=== PATIENT | male | born 1980 | race Asian ===

== ENCOUNTER 2025-02-22 20:04 | Emergency (ER) | payer SELFPAY ==
[2025-02-22 20:16] VITALS: BP 135/89
[2025-02-22 20:26] VITALS: BP 101/70
[2025-02-22 20:35] VITALS: BMI 22.5
--- NOTE | 2025-02-22 20:56 | ED.SKININJ ---
HPI-Injury
General
Chief Complaint: Bite
Source: patient and other (Friend)
Time Seen by Provider: 02/22/25 20:28
History of Present Illness-Injury
Is this injury a work related problem?: No
Is pt an associate of [facility]?: No
Initial Injury comments:
Patient bitten by a friend's dog. Dog is domestic. Dog up-to-date on rabies shots. Patient is currently on a green card and had [place] about 2 [place] No other injury except for the lip. Very superficial bite to
the right arm.
Past History
Past History
ED Past Medical History: None
Review of Systems
Review of Systems
All Other Systems: Not applicable
Phy Exam
Physical Exam
Physical Exam:
GENERAL: Alert and oriented in no apparent distress
EYE: Orbits normal.
NECK: Supple, no trauma
ENT: Pharynx without erythema. Defect to the lower lip midline approximately 3 cm x 1 cm. 2 cm intraoral laceration in the same location. Teeth are stable.
CARDIAC: Regular rate and rhythm
LUNGS: No respiratory distress
NEUROLOGICAL: Alert and oriented , grossly non-focal
SKIN: Warm and dry. Very superficial bite to the right arm
MUSCULOSKELETAL: No edema,no deformity.Good color
PSYCH: Normal and appropriate interaction.
Course
Orders/Labs/Results
Orders:
Orders
02/22/25 21:40
Amoxicillin 875 mg/Clav 125 mg [Augmentin 875 mg/125 mg] 1 tablet PO NOW STA
Ibuprofen [Motrin] 600 mg PO NOW STA
Vital Signs
Initial and Last Documented VS:
Initial Vital Signs
Pulse Resp BP Pulse Ox
83 18 135/89 100
02/22/25 20:16 02/22/25 20:16 02/22/25 20:16 02/22/25 20:16
Last Documented Vital Signs
Pulse Resp BP Pulse Ox
77 16 101/70 95
02/22/25 20:30 02/22/25 20:30 02/22/25 20:26 02/22/25 20:58
Procedures
Laceration Closure
Buccal mucosa lower inside lip:
Status of Wound: clean
Size of Wound in cm: 2
Description of Wound Edges: ragged
Preparation: cleaned with saline
Anesthesia: 1% Lidocaine with epi
Revision/Debridement: minor revision
Wound exploration: explored to base- no FB
Type of Closure: single layer closure
Skin Closure Material: 5-0 vicryl
Number of sutures: 4
MDM/Problems Addressed
Differential Diagnosis Includes:
Defect of the lower lip. Vasovagal syncope at triage. This was all stable. Picture sent to plastic surgery. Leave wound open. I will close the intraoral laceration. Antibiotics Aquaphor and follow-up with plastic surgery
*Pulse Oximetry
SaO2: 95
Oxygen Mode of Delivery: Room air
Patient hypoxic: no
*Critical Care Note
Total Time (30-74mins, 75-104mins- exclusive of procedures): Not Applicable
ED Attending Note
-
Portions of this chart may have been created with voice recognition software.� Occasional wrong word or��sound alike� substitutions may have occurred due to the inherent limitations of voice recognition software.
Discharge Plan
Departure
Patient Disposition: Home (Routine Discharge)
Date of Disposition: 02/22/25
Time of Disposition: 21:42
Patient with high blood pressure during this ER visit?: No
Discharge Problem:
Lip avulsion, Intraoral laceration, Secondary to dog bite, Vasovagal near syncope
Instructions: Animal Bites (DC), Laceration Repair With Stitches (DC), Near Fainting (DC)
Prescriptions:
New
amoxicillin-pot clavulanate 875-125 mg tablet
1 tab PO BID Qty: 14 0RF
Referrals:
NONE,* [Family Provider, Internal Medicine]
Anthony Abernathy MD [Active, Plastic Surgery] - Follow up in 2-3 days
Activity Restrictions/Additional Instructions:
Swish and spit with chlorhexidine oral rinses
Aquaphor to the lip
The plastic surgery office should call you tomorrow for recheck on
For completeness have the dog checked by the vet
Interventions
Interventions:
*Risk Screen - Suicide Last Done: 02/22/25 20:39
*General Assessment Last Done: 02/22/25 20:16
*Neglect/Abuse Screening Last Done: 02/22/25 20:39
*ED- Fall Risk Assessment Last Done: 02/22/25 20:16
*ED COVID-19 Vaccine History Last Done: 02/22/25 20:16
*Nursing Disposition Last Done: 02/22/25 21:54
ED-Skin Assessment Last Done: 02/22/25 20:36
Discharge Date and Time
Discharge Date/Time: 02/22/25 21:55
Print Language: MACANESE
[2025-02-22] MEDS: AUGMENTIN 875 MG/125 MG 1 TABLET PO (21:45)
[2025-02-22] MEDS: MOTRIN 600 MG PO (21:45)
== END 2025-02-22 21:55 | disposition home or self-care (01) ==
LOC: EMR 20:04
PROVIDERS: EMERGENCY PHYSICIAN Emergency Medicine
DX: S01.512A Laceration without foreign body of oral cavity, initial encounter (principal); S40.871A Other superficial bite of right upper arm, initial encounter; W54.0XXA Bitten by dog, initial encounter; R55 Syncope and collapse
CPT/HCPCS: 99283; 12011

== ENCOUNTER 2025-02-23 20:22 | Emergency (ER) | payer OTHER, SELFPAY ==
[2025-02-23 20:25] VITALS: BP 97/82
--- NOTE | 2025-02-23 23:38 | ED.GENMED ---
History of Present Illness
<Luis Muniz Jr., PA-C - Last Filed: 02/24/25 03:04>
General
Chief Complaint: Skin Problem
Source: patient
Exam Limitations: none
Time Seen by Provider: 02/23/25 23:05
Nursing documentation reviewed up to this point in time: agreed with
History of Present Illness
History of Present Illness:
44-year-old male presenting to the emergency department today for concerns of ongoing swelling to the lower lip. Was bit by dog yesterday treated with antibiotics also had partial repair laceration thinks it could be looking worse and has had some
drainage. Denies any systemic symptoms or fevers.
Past History
<Luis Muniz Jr., PA-C - Last Filed: 02/24/25 03:04>
Past History
ED Past Medical History: None
Review of Systems
<Luis Muniz Jr., PA-C - Last Filed: 02/24/25 03:04>
Review of Systems
Allergies reviewed?: Yes
All Other Systems: ROS reviewed and negative except as documented in HPI and ROS
Phy Exam
<GUNNAR Goyal Jr. Last Filed: 02/24/25 03:04>
Physical Exam
Physical Exam:
GENERAL: Alert , in no apparent distress
EYE: pupils equal and reactive
NECK: Supple, no significant adenopathy.
ENT: Lower lip with laceration no ongoing drainage some tenderness and swelling. No redness or warmth normal oromucosa no fluctuance or induration o/p clr, mmm.
CARDIAC: Regular rate and rhythm .
LUNGS: Clear breath sounds bilaterally, no acute respiratory distress, no wheezes/rales/rhonchi
ABDOMEN: Soft, without focal tenderness, no r/g, no cvat
NEUROLOGICAL: Alert and oriented, no focal neuro deficits
SKIN: Warm and dry, skin intact.
MUSCULOSKELETAL: No edema, well perfused.
PSYCH: Normal and appropriate interaction.
Sepsis
<Luis Muniz Jr., PA-C - Last Filed: 02/24/25 03:04>
Sepsis Screening
Sepsis Assessment: Sepsis Ruled Out
Sepsis Screen
Sepsis Screen: Sepsis Ruled Out
Date: 02/24/25
Time: 03:04
<Darling Hampton DO - Last Filed: 02/24/25 04:50>
Sepsis Screen
Sepsis Screen: Sepsis Ruled Out
Date: 02/24/25
Time: 04:45
Course
<Luis Muniz Jr., PA-C - Last Filed: 02/24/25 03:04>
Vital Signs
Initial and Last Documented VS:
Initial Vital Signs
Temp Pulse Resp BP Pulse Ox
98.5 F 76 16 97/82 99
02/23/25 20:25 02/23/25 20:25 02/23/25 20:25 02/23/25 20:25 02/23/25 20:25
Last Documented Vital Signs
Temp Pulse Resp BP Pulse Ox
98.5 F 76 16 97/82 99
02/23/25 20:25 02/23/25 20:25 02/23/25 20:25 02/23/25 20:25 02/23/25 23:38
<Darling Hampton DO - Last Filed: 02/24/25 04:50>
Vital Signs
Initial and Last Documented VS:
Initial Vital Signs
Temp Pulse Resp BP Pulse Ox
98.5 F 76 16 97/82 99
02/23/25 20:25 02/23/25 20:25 02/23/25 20:25 02/23/25 20:25 02/23/25 20:25
Last Documented Vital Signs
Temp Pulse Resp BP Pulse Ox
98.5 F 76 16 97/82 99
02/23/25 20:25 02/23/25 20:25 02/23/25 20:25 02/23/25 20:25 02/23/25 23:38
<Luis Muniz Jr., PA-C - Last Filed: 02/24/25 03:04>
MDM/Problems Addressed
MDM/Problems Addressed:
44-year-old male presenting with concerns of ongoing discomfort and increasing swelling to the lower lip after being bit by dog yesterday. Here there is no redness or warmth no evidence of obvious infection at this point. Advised for ongoing
antibiotic use and return precautions given for any signs of infection.
<Luis Muniz Jr., PA-C - Last Filed: 02/24/25 03:04>
*Pulse Oximetry
SaO2: 99
Oxygen Mode of Delivery: Room air
Patient hypoxic: no (99)
*Critical Care Note
Total Time (30-74mins, 75-104mins- exclusive of procedures): Not Applicable
ED Attending Note
<Luis Muniz Jr., PA-C - Last Filed: 02/24/25 03:04>
-
Portions of this chart may have been created with voice recognition software.� Occasional wrong word or��sound alike� substitutions may have occurred due to the inherent limitations of voice recognition software.
<Darling Hampton DO - Last Filed: 02/24/25 04:50>
ED Attending Note
Patient seen and examined by attending physician: Yes
I performed a history and physical exam of patient and discussed management with resident, I reviewed resident's note and agree with documented findings and plan of care.: Yes
ED Attending Note:
This is a 44-year-old gentleman who suffered a dog bite wound to his lower lip yesterday.
Full-thickness tissue loss mid aspect of his lower lip. Suture repaired.
He has follow-up planned with plastic surgery next week.
He presents with concern for some exudate developing. He denies significant pain. He has not had a fever.
He believes he is up-to-date with Tdap. Recently obtained his green card and had multiple immunizations during process of obtaining his green card.
He has been compliant with Augmentin.
Exam notable for an element of full-thickness tissue loss to mid aspect of the lower lip with local crusting/early eschar. There is no erythema, no exudate, no significant soft tissue swelling.
Overall the wound appears to be healing well. No evidence of infection.
Recommend continuing with local wound care. Continue Augmentin. Soft bland diet.
Follow-up with plastics as already planned.
Discharge Plan
Departure
Patient Disposition: Home (Routine Discharge)
Date of Disposition: 02/23/25
Time of Disposition: 23:36
Patient with high blood pressure during this ER visit?: No
Condition: Good
Discharge Problem:
Encounter for wound re-check, healing dog bite wound lower lip
Prescriptions:
No Action
amoxicillin-pot clavulanate 875-125 mg tablet
1 tab PO BID Qty: 14 0RF
omeprazole
PO DAILY
Referrals:
NONE,* [Family Provider, Internal Medicine]
Anthony Abernathy MD [Active, Plastic Surgery] - Follow up in 2-3 days
Activity Restrictions/Additional Instructions:
Continue Augmentin.
Check on tetanus immunization status.
You may take Tylenol versus ibuprofen as needed for discomfort.
Follow-up with plastic surgeon.
Interventions
Interventions:
*Risk Screen - Suicide Last Done: 02/23/25 20:25
*General Assessment Last Done: 02/23/25 21:32
*Neglect/Abuse Screening Last Done: 02/23/25 20:25
*ED- Fall Risk Assessment Last Done: 02/23/25 20:25
*ED COVID-19 Vaccine History Last Done: 02/23/25 21:32
*Nursing Disposition Last Done: 02/23/25 23:45
ED-Skin Assessment Last Done: 02/23/25 21:32
Discharge Date and Time
Discharge Date/Time: 02/23/25 23:45
Print Language: VINCENTIAN
== END 2025-02-23 23:45 | disposition home or self-care (01) ==
LOC: EMR 20:22
PROVIDERS: EMERGENCY PHYSICIAN Emergency Medicine
DX: Z48.00 Encounter for change or removal of nonsurgical wound dressing (principal); S01.511A Laceration without foreign body of lip, initial encounter; W54.0XXA Bitten by dog, initial encounter; Z79.2 Long term (current) use of antibiotics
CPT/HCPCS: 99282; 12011